=== PATIENT | female | born 1985 ===

== ENCOUNTER 2024-03-28 20:20 | Emergency (ER) | payer SELFPAY ==
--- NOTE | ~2024-03-28 | XR_ITS ---
EXAMINATION: XR chest 2V Exam Date/Time: 03/28/2024 20:29 [facility] HISTORY: PAIN RADIATING DOWN RIGHT ARM AND ACROSS CHEST Comparison: None. RESULT: Lines, tubes, and devices: None. Lungs and pleura: Clear. Scattered calcified granulomas. Cardiomediastinal silhouette: Stable. Other: No acute osseous or upper abdominal finding. IMPRESSION: No acute cardiopulmonary process. Reviewed, dictated and finalized at location [facility]
--- NOTE | 2024-03-28 20:24 | ECG_ITS ---
Test Date: 2024-03-28 20:30:49 Measurements Intervals Pierz Rate: 95 P: 130 VT: 133 QRS: 100 QRSD: 83 T: 124 QT: 343 QTc: 433 Interpretive Statements SINUS RHYTHM ARM LEADS REVERSED [INVERTED P AND QRS IN I] No previous ECG available for comparison Electronically Signed On 03-29-2024 18:47:20 [employer] by Jw Putnam
[2024-03-28 20:47] VITALS: BP 138/92; PULSE 99; RESP 18; TEMP 36.4; O2SAT 100
== END 2024-03-29 00:02 | disposition left against medical advice (07) ==
LOC: ANHED 23:55
PROVIDERS: Emergency Provider Student in an Organized Health Care Education/Training Program
DX: R07.9 Chest pain, unspecified (principal)
CPT/HCPCS: 71046; 93005; 99199